=== PATIENT | female | born 1945 | race Caucasian/White ===

== ENCOUNTER 2017-10-16 06:54 | Day surgery (SDC) | payer MEDICARE, OTHER ==
[2017-10-16] MEDS ORDERED: EPINEPHrine 1 MG INJ (07:00)
[2017-10-16] MEDS: PHENYLephrine 10% 5 ML OPH OPER (07:46)
[2017-10-16] MEDS: CYCLOPENTOLATE 2% 2 ML OPH OPER (07:46)
[2017-10-16] MEDS: NEPAFENAC 0.1% 3 ML OPH OPER (07:46)
[2017-10-16] MEDS: MOXIFLOXACIN 0.5% 3 ML OPH OPER (07:46)
[2017-10-16] MEDS: LIDOCAINE 1% (MPF) 10 ML INJ INJ (08:40)
[2017-10-16] MEDS ORDERED: LIDOCAINE 100 MG SYRINGE (08:46)
[2017-10-16] MEDS ORDERED: PROPOFOL 20 ML (08:46)
[2017-10-16] MEDS ORDERED: MIDAZOLAM 1 MG/ML 2 ML INJ (08:52)
[2017-10-16] MEDS: TIMOLOL 0.5% 5 ML OPH RIGHT EYE (09:32)
[2017-10-16] MEDS ORDERED: DIPHENHYDRAMINE 50 MG INJ (09:33)
[2017-10-16] MEDS ORDERED: TIMOLOL 0.5% 5 ML OPH (09:48)
[2017-10-16] MEDS ORDERED: BUPIVACAINE 0.75% (MPF) 10 ML INJ (09:48)
[2017-10-16] MEDS ORDERED: LIDOCAINE 2% (SDV) 5 ML INJ (09:48)
[2017-10-16] MEDS ORDERED: LIDOCAINE 1% (MPF) 10 ML INJ (09:48)
== END 2017-10-16 11:10 | disposition home or self-care (01) ==
LOC: SDS 06:54
DX: H25.11 Age-related nuclear cataract, right eye (principal); I12.9 Hypertensive chronic kidney disease with stage 1 through stage 4 chronic kidney disease, or unspecified chronic kidney disease; E11.22 Type 2 diabetes mellitus with diabetic chronic kidney disease; N18.9 Chronic kidney disease, unspecified; E78.5 Hyperlipidemia, unspecified; K21.9 Gastro-esophageal reflux disease without esophagitis
CPT/HCPCS: 66984

== ENCOUNTER 2017-12-16 08:33 | Day surgery (SDC) | payer MEDICARE, OTHER ==
[2017-12-16] MEDS: LIDOCAINE 1% (MPF) 10 ML INJ INJ
[~2017-12-16 08:33] MED LIST: EPHEDrine SULFATE 50 MG/5 ML SYG
[2017-12-16] MEDS: PHENYLephrine 10% 5 ML OPH OPER (09:22)
[2017-12-16] MEDS: MOXIFLOXACIN 0.5% 3 ML OPH OPER (09:22)
[2017-12-16] MEDS: NEPAFENAC 0.1% 3 ML OPH OPER (09:22)
[2017-12-16] MEDS: CYCLOPENTOLATE 2% 2 ML OPH OPER (09:22)
[2017-12-16] MEDS ORDERED: TIMOLOL 0.5% 5 ML OPH (09:59)
[2017-12-16] MEDS ORDERED: PROPOFOL 20 ML (10:05)
[2017-12-16] MEDS ORDERED: LIDOCAINE 2% (SDV) 5 ML INJ (10:05)
[2017-12-16] MEDS ORDERED: FENTAnyl 50 MCG/ML VIAL (10:06)
[2017-12-16] MEDS ORDERED: ONDANSETRON 4 MG INJ (10:06)
[2017-12-16] MEDS ORDERED: ONDANSETRON 4 MG INJ IV (11:30)
[2017-12-16] MEDS ORDERED: FENTAnyl 50 MCG/ML VIAL IV (11:30)
[2017-12-16] MEDS: TIMOLOL 0.5% 5 ML OPH LEFT EYE (11:40)
== END 2017-12-16 14:10 | disposition home or self-care (01) ==
LOC: SDS 08:33
DX: H25.12 Age-related nuclear cataract, left eye (principal); E11.9 Type 2 diabetes mellitus without complications; I10 Essential (primary) hypertension; E78.5 Hyperlipidemia, unspecified
CPT/HCPCS: 66984